=== PATIENT | female | born 1980 | race Caucasian/White ===

== ENCOUNTER → 2017-04-09 | Outpatient (CLI) | payer BC ==
[~2017-04-09] MED LIST: PRENTAB26 PO
== END | disposition home or self-care (01) ==
LOC: C.PAPS 11:05
PROVIDERS: ATTEND Physician Assistant
DX: Z01.419 Encounter for gynecological examination (general) (routine) without abnormal findings (principal)

== ENCOUNTER → 2018-04-15 | Outpatient (CLI) | payer OTHER ==
--- NOTE | 2018-04-15 14:56 | MAMMOGRAPHY REPORT ---
BILATERAL DIGITAL DIAGNOSTIC MAMMOGRAM TOMOSYNTHESIS WITH CAD AND TARGETED RIGHT ULTRASOUND: 04/15/2018 CLINICAL HISTORY: 37-year-old woman initially presented to her provider with pain in the 6:00 right b reast. On clinical breast exam her provider noted an area of concern in the 4:00 right breast. Patien t reports no fevers or chills, skin erythema or bloody nipple discharge. Family history of breast can cer = paternal grandmother. Baseline exam. TECHNIQUE: Bilateral CC and MLO 2D and tomosynthesis images were obtained. Current study was also ev aluated with a Computer Aided Detection (CAD) system. COMPARISON: No prior exams were available for comparison. BREAST COMPOSITION: The tissue of both breasts is heterogeneously dense, which may obscure small mass es. FINDINGS: A triangular skin marker overlies the 6:00 middle one third of the right breast, denoting t he area of pain pointed out by the patient. There are diffuse bilateral round and punctate calcifica tions throughout the breasts. No discrete suspicious grouping or cluster or linear distribution of c alcifications is identified. No focal skin thickening or nipple retraction. No obvious mass, maggy ectural distortion or asymmetry is seen. Targeted ultrasound was performed in the area of pain pointed out by the patient, and also throughout to the 5:00 and 4:00 axes of the right breast in the area of abnormality identified by the patient's provider. Sonographically normal dense glandular tissue is seen without a suspicious solid or cysti c mass. No focal skin thickening or drainable fluid collection. IMPRESSION: ACR BI-RADS CATEGORY 2: BENIGN, ULTRASOUND ACR BI-RADS CATEGORY 2: BENIGN 1. There is no suspicious mammographic or targeted sonographic abnormality in the 4:00 through 6:00 axes of the right breast in the areas of palpable concern and pain pointed out by the patient. There fore, continued clinical follow-up is recommended, as biopsy of a clinically suspicious mass should n ot be precluded by negative imaging. 2. Overall, no mammographic evidence of malignancy in the breasts. Recommend bilateral screening ma mmography in 1 year. These results and recommendations were discussed with the patient at the time of the exam. Some breast cancers are not detected with mammography. A negative mammographic report should not reji y biopsy if a clinically suggestive mass is present. Kathy Hopkins M.D. ay/:04/15/2018 10:26:59 Case Management Rn: RT Kalpesh(Delmy)(M), [facility] letter sent: Normal 09/16 OVERALL STUDY BIRADS: 2 Benign
== END | disposition home or self-care (01) ==
LOC: C.MAMM 09:34
PROVIDERS: ATTEND Obstetrics & Gynecology
DX: R92.8 Other abnormal and inconclusive findings on diagnostic imaging of breast (principal); N63.10 Unspecified lump in the right breast, unspecified quadrant

== ENCOUNTER → 2018-05-06 | Outpatient (CLI) | payer OTHER | END | disposition home or self-care (01) | LOC: C.PAPS 13:37 | PROVIDERS: ATTEND Obstetrics & Gynecology | DX: Z01.419 Encounter for gynecological examination (general) (routine) without abnormal findings (principal) ==